=== PATIENT | female | born 1940 | race Caucasian/White ===

== ENCOUNTER 2017-07-20 12:23 | Inpatient (IN) | payer MEDICARE, MEDICAID ==
[2017-07-20] MEDS ORDERED: Magnesium Sulfate 2 GM/100 ML BAG ONE (12:58)
[2017-07-20] MEDS ORDERED: Dexamethasone 10 MG/ML VIAL ONE (12:58)
[2017-07-20 13:13] LABS: Actual Bicarbonate (HCO3a) 27.7 mEq/L (22-26); CO2 Tension 42.6 mmHg (35.0-45.0); Calcium, Ionized 1.2 mmol/L (1.12-1.30); Hematocrit-ABG 45.8 % (36.0-47.0); Hemoglobin (Hb) 14.2 g/dL (12.0-16.0); O2 Tension (PaO2) 144.4 mmHg (80.0-100.0); pH, Arterial 7.43 (7.35-7.45)
[2017-07-20 13:15] LABS: Analyzer IN Cardio ER; Puncture Site L.R.
[2017-07-20 13:17] LABS: #Basophils 0.1 thou/uL (0.0-0.2); #Eosinphils 0.1 thou/uL (0.0-0.7); #Lymphocytes 1.4 thou/uL (1.20-3.40); #Neutrophils 7.3 thou/uL (1.40-6.50); %Basophils 0.5 % (0.0-1.0); %Eosinophils 0.5 % (0.0-10.0); %Lymphocytes 14.2 % (21.0-51.0); %Neutrophils 74.8 % (42.0-75.0); Hemoglobin 14.6 g/dL (12.0-16.0); Mean Corpuscular HGB CONC 32.4 g/dL (32.0-36.0); Mean Corpuscular Hemoglobin 31.1 pg (27.0-31.0); Mean Corpuscular Volume 95.9 fl (81.0-99.0); Platelet Count 260 thou/uL (130-400); RBC Distribution Width 13.4 % (11.5-14.5); Red Blood Cell (RBC) Count 4.69 mill/uL (4.20-5.40); White Blood Cell (WBC) Count 9.8 thou/uL (4.8-10.8)
[2017-07-20 13:27] LABS: PTT 27.6 SEC (22.9-36.1); Prothrombin Time 12.7 SEC (12.0-14.7)
--- NOTE | 2017-07-20 13:43 | RAD ---
FRONTAL RADIOGRAPH CHEST PORTABLE UPRIGHT: Date: 07/20/17 COMPARISON: 05/27/16. HISTORY: Shortness of breath, dyspnea. FINDINGS: There has been interval development of linear interstitial densities within both lung bases with a so mewhat nodular configuration, right greater than left. There is diffuse increased linear interstitial densities with pulmonary hyperinflation suggesting air trapping in the setting of COPD. No pneumoth orax or large volume pleural effusion. IMPRESSION: New reticulonodular densities are noted within the lung bases. Suspicious for COPD. New reticulonodul ar densities may be on the basis of infectious pneumonitis or aspiration. Recommend follow-up PA and lateral chest imaging following treatment. POS: [facility]
[2017-07-20 13:44] LABS: ALT (SGPT) 29 U/L (8-55); AST (SGOT) 32 U/L (5-34); Alkaline Phosphatase 84 U/L (40-150); Anion Gap 16 mmol/L (10-20); BUN (Urea Nitrogen) 8 mg/dL (9.8-20.1); Bilirubin, Total 0.6 mg/dL (0.2-1.2); CK (CPK) 55 U/L (29-168); Calc. Creatinine Clearance 0 mL/min (70-130); Calcium 10.3 mg/dL (7.8-10.44); Carbon Dioxide 25 mmol/L (23-31); Chloride 101 mmol/L (98-107); Estimated GFR-MDRD Greater than 90; Globulin 3.6 g/dL (2.4-3.5); Glucose 103 mg/dL (83-110); Lipase 4 U/L (8-78); Protein, Total 7.6 g/dL (6.0-8.3); Sodium 138 mmol/L (136-145)
[2017-07-20 13:48] LABS: CKMB 2.3 ng/mL (0-6.6); Troponin I 0.015 ng/mL (< 0.028)
[2017-07-20 15:12] LABS: Bilirubin Small (Negative); Blood, Urine Small (Negative); Clarity CLEAR (Clear); Glucose, Urine (Dipstick) 100 mg/dL (Negative); Leukocyte Negative (Negative); Nitrite Negative (Negative); Protein, Urine (Dipstick) 100 mg/dL (Neg-Trace)
[2017-07-20 15:14] LABS: Bacteria/HPF None Seen HPF (None Seen); Hyaline Casts/LPF 0-3 HYALINE CAST LPF (0-3 Hyaline); Squamous Epithelial 0-3 HPF (0-3); WBC/HPF 0-3 HPF (0-3)
[2017-07-20] MEDS ORDERED: Ondansetron ODT 4 MG TAB SL PRN (17:24)
[2017-07-20] MEDS ORDERED: Ondansetron HCl/PF 4 MG/2 ML Vial IVP PRN (17:24)
[2017-07-20 17:43] VITALS: BMI 16.8
[2017-07-20] MEDS ORDERED: Guaifenesin DM 100-10/5 ML UDCUP PO PRN (17:50)
[2017-07-20] MEDS ORDERED: cefTRIAXone\\ROCEPHIN 1 GM in Sodium Chloride 0.9% 100 ML IVPB SCH (18:00)
[2017-07-20] MEDS: cefTRIAXone\\ROCEPHIN 1 GM, Syringe 0.4 ML in Sterile Water 9.6 ML SLOW IVP SCH (20:28)
[2017-07-20] MEDS: Acetaminophen 325 MG TAB PO PRN (20:33)
[2017-07-20] MEDS ORDERED: Dexamethasone 4 mg/ml Vial SLOW IVP SCH (21:00)
[2017-07-20] MEDS: Zolpidem Tartrate 5 MG TAB PO PRN (23:15)
--- NOTE | 2017-07-20 23:31 | HP ---
ADMITTING PHYSICIAN: Dani Villarreal M.D. HISTORY OF PRESENT ILLNESS: The patient is a 77-year-old female with a known history of COPD who pre sented to the emergency room via ambulance complaining of respiratory distress. She has a long histo ry of recurrent COPD. She has actually started smoking again. She reports for the last 2 weeks, she has had increasing bouts of shortness of breath and became unresponsive to therapies at home. She c alled an ambulance 911 and was brought into the emergency room. She was seen and evaluated in the ER , she was found to be in some respiratory distress, was initially placed on BiPAP, which did help all eviate some of her respiratory distress. She was given IV doses and magnesium, Levaquin as well as D ecadron and breathing treatments. Her condition did improve. She subsequently has been admitted for further treatment and evaluation. As noted, she has a long history of COPD and has required hospita lization in the past. She has been doing relatively well over the last several months. Otherwise, no other medical complaints are noted. ALLERGIES: She is allergic to CATG[place] SUTURE. CURRENT MEDICATIONS: None except for inhalant agents Advair and albuterol. PAST MEDICAL HISTORY: Positive for COPD, history of breast biopsy in the past with benign findings. SOCIAL/PERSONAL HISTORY: She is retired. She does not smoke at this time, but she has an extensive history of tobacco use, well over 50 years. She does not drink alcohol at this time. She lives most ly alone with herself. PHYSICAL EXAMINATION: VITAL SIGNS: Her temperature 98.0, pulse 69, respirations 26, O2 sat 95 on 2 liters, BP 156/79. GENERAL: She is alert, active, in no acute distress. HEENT: Normocephalic, atraumatic. Extraocular muscles are intact. Sclerae and conjunctivae clear. Throat clear. NECK: Supple, full range of motion, no masses, no bruits, no thyroid masses are noted. LUNGS: Reveal bilateral breath sounds, decreased respiratory excursion, otherwise noted. Scattered wheezes noted. HEART: Reveals no murmur, regular rate and rhythm without gallops. ABDOMEN: Soft, nontender, bowel sounds present and active. No hepatosplenomegaly is noted at this t yosi. EXTREMITIES: No clubbing, edema or cyanosis. LABORATORY DATA: Her hemoglobin is 14.6, hematocrit 44.9, white blood count 9.8. Chemistry: Sodium 138, potassium 4.0, chloride 101, CO2 of 25, BUN 8, creatinine 0.6. Urinalysis is otherwise clear. Chest x-ray is clear. Positive for COPD. IMPRESSION: Exacerbation of chronic obstructive pulmonary disease. PLAN: The patient has been admitted. She will be continued on IV steroids that she is currently on. She will be placed on IV Zithromax as well as IV Rocephin. She will be continued on nebulizations. Pulmonary consult will be obtained from Dr. Barcenas of Pulmonology for further treatment recommendatio ns. Anticipated time in the hospital is 2-3 days. She may require supplemental oxygen at home.
--- NOTE | 2017-07-21 07:52 | PRG ---
DATE OF SERVICE: 07/21/2017 SUBJECTIVE: Ms. Qiu is awake and alert. She still has some short of breath, although she has be en able to remove the oxygen some and move about the room. OBEJCTIVE: VITAL SIGNS: On exam, temperature 98.8, BP 127/78, O2 sats 96% on 2 liters. LUNGS: Reveal diffuse wheezes, still poor air movement. Otherwise, no rales or rhonchi. HEART: Reveals no murmur. IMPRESSION: Exacerbation of chronic obstructive pulmonary disease. PLAN: Continue current therapy, await pulmonary consult.
[2017-07-21] MEDS: Azithromycin 250 MG TAB PO SCH (08:16)
[2017-07-21] MEDS ORDERED: Cefepime 1 GM in Sodium Chloride 0.9% 100 ML IVPB SCH (09:00)
[2017-07-21] MEDS: Cefepime 1 GM, Admixture Fee 1 EACH in Sterile Water 10 ML SLOW IVP SCH ×2 (10:01→21:03)
[2017-07-21] MEDS: predniSONE 20 MG TAB PO SCH ×2 (10:01→20:53)
--- NOTE | 2017-07-21 14:52 | CON ---
DATE OF CONSULTATION: 07/21/2017 HISTORY OF PRESENT ILLNESS: A 77-year-old female who is well known to us, has known history of longs tanding COPD, persistent tobacco abuse. She said as of 07/12/2017, ten days ago, she says she has qu it smoking finally. I am not so sure that this is going to be the end of her smoking, but she states that for two weeks she has had progressive shortness of breath, cough, wheezing, unresponsive to usu al home medication. She denies any chest pain, chills or sweats. She can barely walk on a good day 30 feet without getting markedly short of breath. PAST MEDICAL HISTORY: Pertinent mainly for hypertension, it is unclear if she is taking any medicati ons, COPD, tobacco abuse. PAST SURGICAL HISTORY: Cholecystectomy, endoscopy. SOCIAL HISTORY: Alcohol, no. Tobacco use noted. Presently disabled. MEDICINES FROM HOME: Includes DuoNeb, Advair 115/21, ProAir. ALLERGIES: None. SOCIAL/FAMILY HISTORY: Unremarkable. REVIEW OF SYSTEMS: Ten point negative. PHYSICAL EXAMINATION: VITAL SIGNS: Blood pressure is 127/78, sats are 96% on 2 liters, temperature 98, respirations 16. CHEST: Decreased breath sounds, prolonged expiration. No wheezing. CARDIAC: Normal S1 and S2. No gallops. ABDOMEN: Soft. No masses. LABORATORY DATA AND IMAGING DATA: White count 9,000, hemoglobin and hematocrit 14 and 44, platelet c ount 260. She had a BiPAP placed yesterday with a pO2 of 144, pCO2 42, pH 7.43. Electrolytes are no rmal. X-ray shows what appears to be a new right lower lobe infiltrate. IMPRESSION: 1. Acute and chronic respiratory failure with ongoing tobacco abuse. 2. Right lower lobe pneumonia. 3. Tobacco abuse, anxiety, cachexia. PLAN: Restart neb treatments, Dulera, antibiotics, steroids. We will follow. Time spent 70 minutes of which 50 minutes were spent with patient care on the floor.
[2017-07-21] MEDS: Mometasone/Formoterol 120 PUFF INHALER INH SCH (20:11)
[2017-07-21] MEDS: cefTRIAXone\\ROCEPHIN 1 GM, Syringe 0.4 ML in Sterile Water 9.6 ML SLOW IVP SCH (20:59)
[2017-07-21] MEDS: Acetaminophen 325 MG TAB PO PRN (22:25)
[2017-07-21] MEDS: Zolpidem Tartrate 5 MG TAB PO PRN (22:25)
[2017-07-22] MEDS: Mometasone/Formoterol 120 PUFF INHALER INH SCH ×3 (06:36→20:00)
--- NOTE | 2017-07-22 07:53 | PRG ---
DATE OF SERVICE: 07/22/2017 This morning she is better, less cough, less shortness of breath. PHYSICAL EXAMINATION: VITAL SIGNS Sats are 96% on 2 liters, pulse 77, respiration rate 16. CHEST: Chest reveals decreased breath sounds, no wheezing. CARDIAC: Normal S1, S2. ABDOMEN: Abdomen soft, no masses. IMPRESSION: 1. Exacerbation of bronchitis. 2. Tobacco use. 3. Pneumonia. PLAN: Continue present medications. Review x-rays. Deescalate medication tomorrow.
--- NOTE | 2017-07-22 08:42 | RAD ---
PORTABLE CHEST: Date: 07/22/17 PROVIDED CLINICAL HISTORY: Pneumonia. COMPARISON: 07/20/17. FINDINGS: Cardiac and mediastinal silhouette is unchanged in appearance. Emphysematous changes are redemonstrat ed. Prominent interstitial markings at the lung bases appear similar to somewhat less conspicuous asia n on the prior. There is no evidence for pleural fluid or pneumothorax. IMPRESSION: Prominent chronic obstructive changes. Reticular opacities at the lung bases could be on the basis of infection, but could also be artifactual on the basis of the apicobasilar gradient of emphysematous change. POS: [facility]
[2017-07-22] MEDS: Azithromycin 250 MG TAB PO SCH (08:45)
[2017-07-22] MEDS: Cefepime 1 GM, Admixture Fee 1 EACH in Sterile Water 10 ML SLOW IVP SCH ×2 (08:45→20:06)
[2017-07-22] MEDS: predniSONE 20 MG TAB PO SCH ×2 (08:45→20:06)
--- NOTE | 2017-07-22 13:47 | PRG ---
DATE OF SERVICE: 07/22/2017 SUBJECTIVE: Ms. Qiu is doing better. She is having less shortness of breath, less endurance iss ues. OBJECTIVE: VITAL SIGNS: Temperature 97.6, O2 sats 92%. LUNGS: Increased air movement with no rales, rhonchi or wheezes. IMPRESSION: Exacerbation of chronic obstructive pulmonary disease. PLAN: 1. We will continue current medications. 2. Possibly be transferred home tomorrow.
[2017-07-22] MEDS: cefTRIAXone\\ROCEPHIN 1 GM, Syringe 0.4 ML in Sterile Water 9.6 ML SLOW IVP SCH (20:06)
[2017-07-22] MEDS: Acetaminophen 325 MG TAB PO PRN (22:13)
[2017-07-22] MEDS: Zolpidem Tartrate 5 MG TAB PO PRN (22:13)
[2017-07-23] MEDS: Mometasone/Formoterol 120 PUFF INHALER INH SCH (06:45)
--- NOTE | 2017-07-23 07:45 | PRG ---
DATE OF SERVICE: 07/23/2017 SUBJECTIVE: Ms. Qiu is doing well. She was requiring no supplemental oxygen. She reports that she walked around the room without any significant shortness of breath. PHYSICAL EXAMINATION: VITAL SIGNS: Temperature 97.1, blood pressure 167/70. LUNGS: Reveal bilateral breath sounds. HEART: Reveals no murmur. LABORATORY DATA: All blood cultures are negative. IMPRESSION: Exacerbation of chronic obstructive pulmonary disease. PLAN: The patient is now currently medically stable. In my opinion, she could be discharged home on her home medicines in addition of prednisone daily as well as cefdinir and Zithromax. She will foll ow up with me in 1 week as well as with Dr. Barcenas.
--- NOTE | 2017-07-23 08:26 | DIS ---
ADMITTING PHYSICIAN: Dr. Dani Villarreal CONSULTING PHYSICIAN: Dr. Barcenas DATE OF ADMISSION: 07/20/2017 DATE OF DISCHARGE: 07/23/2017 DISCHARGE DIAGNOSES: Chronic obstructive pulmonary disease exacerbation. HOSPITAL SUMMARY: This is a 77-year-old female with known history of COPD. She had progressive shor tness of breath prior to admission, was seen and evaluated in the emergency room and found to have ex acerbation of COPD. She was placed on IV steroids, supplemental oxygen as well as IV antibiotics. A ll blood cultures were done which were negative. Chest x-ray showed exacerbation of chronic obstruct spring pulmonary disease without evidence of significant findings. Her hospital course was one of slow, steady improvement. She was able to be discharged home on 07/23/2017 on cefdinir 300 mg p.o. b.i.d. , Ambien 5 mg p.o. at bedtime, prednisone 20 mg p.o. daily, Zithromax 250 mg p.o. daily. She will be seen in followup by me in 1 week. She will continue on her home medications of Lisette Marquez as well as Proventil inhaler. She was strongly admonished to quit smoking.
[2017-07-23] MEDS: predniSONE 20 MG TAB PO SCH (08:38)
[2017-07-23] MEDS: Azithromycin 250 MG TAB PO SCH (08:38)
[2017-07-23] MEDS: Cefepime 1 GM, Admixture Fee 1 EACH in Sterile Water 10 ML SLOW IVP SCH (08:38)
[2017-07-23 11:05] VITALS: BP 150/80; TEMP 98
--- NOTE | 2017-07-23 13:25 | PRG ---
DATE OF SERVICE: 07/23/2017 SUBJECTIVE: Ms. Dorothy Qiu is better this morning, less cough, less shortness of breath. OBJECTIVE: VITAL SIGNS: Blood pressure 158/80, sats are 95% on 2 liters, respirations 18 and temperature is 98. CHEST: Decreased breath sounds, occasional wheeze. CARDIAC: Normal S1-S2. No gallops. ABDOMEN: Soft. No masses. X-RAY FINDINGS: X-ray yesterday shows improving left-sided infiltrate. IMPRESSION: Exacerbation of bronchitis and left-sided pneumonia. PLAN: She is discharged home on appropriate antibiotics, neb treatments and steroids. Follow up in the office in a month.
--- NOTE | 2017-07-29 15:34 | PQF ---
LESLIE STONE RICHARD A MD [id number] CLINICAL DOCUMENTATION CLARIFICATION FORM: POST DISCHARGE Addendum to original discharge summary date: ____ Late entry note date: __ LESLIE STONE [id number] AWILDA BONILLA MD YOUR INPUT IS NEEDED TO CORRECTLY CODE A DIAGNOSIS FOR YOUR PATIENT. DATE: 07/29/2017 ATTN: DR. BONILLA Please exercise your independent, professional judgment in responding to the clarification form. Clinical indicators are provided on the bottom of this form for your review Please check appropriate box(s) to clarify if the following diagnosis has been ruled in our ruled out: PNEUMONIA (CDI/ Coding list diagnosis here) [ ] Ruled in diagnosis [ ] Continue to treat [ ] Resolved [ ] Ruled out diagnosis [ ] Cannot rule out diagnosis [ ] Other diagnosis [ ] Unable to determine In addition, please specify: Present on Admission (POA): [ ] Yes [ ] No [ ] Unable to determine For continuity of documentation, please document condition throughout progress notes and discharge summary. Thank You. CLINICAL INDICATORS - SIGNS / SYMPTOMS / LABS: BP: 156/79, PULSE: 69, RESP: 26, TEMP: 98 O2 SAT: 95 on 2 LITERS, BIPAP H&P - RESPIRATORY DISTRESS, COPD CHEST X-RAY - CLEAR 07/21 PULM CONSULT - CXRAY - SHOWS NEW RIGHT LOWER LOBE INFILTRATE RIGHT LL PNEUMONIA 07/22 & 07/23 PN - LEFT-SIDED PNEUMONIA DS - COPD EXACERBATION RISK FACTORS: COPD EXACERBATION SMOKER TREATMENTS: ANTIBIOTICS NEB TREATMENTS STEROIDS (This form is maintained as a part of the permanent medical record) 2014 [employer] All Rights Reserved Marline Padilla CCS, [employer]ER-H [email or web address] [phone] MTDD
--- NOTE | 2017-07-29 15:39 | PQF ---
LESLIE STONE RICHARD A MD [id number] CLINICAL DOCUMENTATION CLARIFICATION FORM: POST DISCHARGE Addendum to original discharge summary date: ____ Late entry note date: __ Date: 07/29/2017 ATTN: DR. BONILLA Please exercise your independent, professional judgment in responding to the clarification form. Clinical indicators are provided on the bottom of this form for your review Please check appropriate box(s): [ ] Protein Calorie Malnutrition: [ ] Mild [ ] Moderate [ ] Severe [ ] Other Malnutrition (please specify) __ [ ] Underweight without malnutrition [ ] Cachexia [ ] Other diagnosis [ ] Unable to determine In addition, please specify: Present on Admission (POA): [ ] Yes [ ] No [ ] Unable to determine CLINICAL INDICATORS - SIGNS / SYMPTOMS / LABS BMI of ___16____ 1/10 PULM CONSULT - CACHEXIA RISK FACTORS: COPD EXACERBATION PNEUMONIA HTN TREATMENT: Dietary consult (This form is maintained as a part of the permanent medical record) 2014 [employer] All Rights Reserved Marline Padilla, [facility], [facility]-H [email or web address] [phone] [email or web address]
== END 2017-07-23 14:07 | disposition home or self-care (01) | DRG 189 ==
LOC: ERS 12:23 → T4-A 14:27
PROVIDERS: ADMIT Family Medicine; ATTEND Family Medicine
PROC: 5A09357 Assistance with Respiratory Ventilation, Less than 24 Consecutive Hours, Continuous Positive Airway Pressure (ICD-10-PCS; principal; 2017-07-20)
DX: J96.20 Acute and chronic respiratory failure, unspecified whether with hypoxia or hypercapnia (principal); R64 Cachexia; J44.1 Chronic obstructive pulmonary disease with (acute) exacerbation; Z68.1 Body mass index [BMI] 19.9 or less, adult; F17.210 Nicotine dependence, cigarettes, uncomplicated; I10 Essential (primary) hypertension; F41.9 Anxiety disorder, unspecified
CPT/HCPCS: 71045; 71046; 80053; 81003; 81015; 82550; 82553; 82805; 83605; 83690; 83880; 84484; 85025; 85610; 85730; 87040; 93005; 94640; 94660; 96365; 96366; 96368; 96375; A4216; J0692; J0696; J1100; J1956; J3475; J7506; J7620